=== PATIENT | female | born 1990 | race Hispanic/Latino ===

== ENCOUNTER 2017-12-19 11:13 | Emergency (ER) | payer OTHER, SELFPAY ==
[2017-12-19 11:44] LABS: #Basophils 0.1 thou/uL (0.0-0.2); #Lymphocytes 2.3 thou/uL (1.20-3.40); #Monocytes 0.3 thou/uL (0.11-0.59); #Neutrophils 3.8 thou/uL (1.40-6.50); %Basophils 0.9 % (0.0-1.0); %Eosinophils 0.5 % (0.0-10.0); %Lymphocytes 35.7 % (21.0-51.0); %Neutrophils 58.8 % (42.0-75.0); Hemoglobin 13.8 g/dL (12.0-16.0); Mean Corpuscular HGB CONC 33.8 g/dL (32.0-36.0); Mean Corpuscular Hemoglobin 30.8 pg (27.0-31.0); Platelet Count 296 thou/uL (130-400); RBC Distribution Width 11.1 % (11.5-14.5); Red Blood Cell (RBC) Count 4.49 mill/uL (4.20-5.40); White Blood Cell (WBC) Count 6.5 thou/uL (4.8-10.8)
[2017-12-19 11:53] LABS: Bilirubin Negative (Negative); Blood, Urine Negative (Negative); Clarity CLEAR (Clear); Glucose, Urine (Dipstick) Negative (Negative); Leukocyte Negative (Negative); Nitrite Negative (Negative); Protein, Urine (Dipstick) Negative (Neg-Trace); Specific Gravity, Urine 1.005 (1.002-1.036); Urobilinogen 0.2 mg/dL (0.2-1.0)
--- NOTE | 2017-12-19 13:16 | ULT ---
PELVIS ULTRASOUND: HISTORY: Positive beta hCG. Patient with pain. TECHNIQUE: Real-time imaging of the pelvis was obtained both transabdominally, as well as with an endovaginal pr obe. FINDINGS: This shows a uterus measuring 4.4 x 5.5 x 8.4 cm. The endometrium is thickened and heterogeneous in appearance. It also shows some increased vascularity. It does not appear to be blood products withi n the endometrium itself. The right ovary is never definitely visualized. On the endovaginal images, there is a left ovarian c ystic appearing structure, which I feel is most likely a corpus luteum type cyst. It does not have t he appearance of an ectopic . It measures 2.1 x 1.8 cm in size. Still slightly to the left of midline but separate from this is a second hypoechoic structure, which does not appear to represe nt a cyst. It measures approximately 2.2 cm in size. It does not have the appearance of an ectopic or tubal type , but it does not definitely have the appearance of an ovary. It also would b e an unusual position for the right ovary, as it is left of midline. On Doppler evaluation with spectral analysis, normal flow is shown to the left ovary. IMPRESSION: 1. Thickened, heterogeneous endometrium with increased vascularity. On some of these images, the ap pearance is similar to what would be seen with a molar type . 2. A 2 cm cystic structure in the left ovary. It appears to be related to a corpus luteum cyst. It does not have the typical appearance of an ectopic. 3. Second structure in the left adnexal region, measuring in the 2 cm range. It is not cystic in na ture. It does not have a typical appearance that would be seen with a tubal type . It has some features that would suggest it is possibly an ovary but it is to the left of midline and it woul d be an unusual position for the right ovary. I am not certain what this represents. One of the pos sibilities is a lymph node or possibly an endometrioma. The possibility of an ectopic is n ot excluded on the basis of this examination. Findings were discussed with Dr. Sunshine. CODE CR POS: [facility]
--- NOTE | 2017-12-19 21:46 | CON ---
DATE OF CONSULTATION: 12/19/2017 The patient had no care. REFERRING PHYSICIAN: Dr. Sunshine in the emergency room. CHIEF COMPLAINT: Concerns for an abnormal . HISTORY OF PRESENT ILLNESS: The patient is a 27-year-old G2 with a positive home test who presents to the emergency room with a 2-day history of lower pelvic pain and discomfort. The patient reports that the pain is not serious, but that she is concerned because of the presence of the disco mfort that she was concerned she could have an ectopic and came for evaluation. The patien t does report that she is in her words hypochondriac and admits that the pain is not severe, but ricky vital just wanted to make sure things were okay. In the process of her evaluation here, patient was note d to have positive quantitative HCG of about 800 and vaginal ultrasound without any evidence of intra uterine , but a thickened heterogeneous endometrium that does not have the typical features when of . The patient denies any recent illness, fever, or fall. She denies vaginal bleedi ng. She denies leakage of fluid. Denies chest pain or shortness of breath. Denies cough. Denies c onstipation or diarrhea. Denies dysuria. Denies musculoskeletal pains. Denies new rash. PAST MEDICAL HISTORY: History of first trimester miscarriage sounds by report as a missed AB resulti ng in medically-induced miscarriage, which she described as a D&C by term in the description of the p rocess was affected by Cytotec, abnormal Pap smear. PAST SURGICAL HISTORY: LEEP procedure. SOCIAL HISTORY: Denies drug, alcohol, and tobacco use. Patient does admit to using her 's Ad derall at times. Late night helpless studying. ALLERGIES: No known drug allergies. MEDICATIONS: None. PHYSICAL EXAMINATION: VITAL SIGNS: Blood pressure 114/67, pulse of 80, respiratory rate of 18, temperature 98.4, satting 9 9% on room air. GENERAL: She appears to be in no acute distress. She is alert and oriented, cooperative and pleasan t to interact with. HEAD: Normocephalic, atraumatic. LUNGS: Clear to auscultation bilaterally. HEART: Regular rate and rhythm. ABDOMEN: Soft, no peritoneal signs, no guarding. She does have some midline tenderness to palpation , mild in nature. Ultrasound again demonstrates a thickened endometrium, describes having some increased vascularity an d signs that could be suggestive of a molar . We did discuss in some detail the concerns that this is an abnormal of some kind. The poss ibility of it being a molar or ectopic . As the patient is without any serious sy mptoms at this time and admittedly just more concerned about what could be going on than actually the actual discomfort that she was in, we have recommended that the patient return in 48 hours for repea t quantitative HCG. The patient is prepared to return and is aware and understands that her definiti ve diagnosis may not be reached for a few days. Patient has been given instructions to return should she experience increasing pain. She has an appointment today to establish care with [facility]. ASSESSMENT AND PLAN: With regards to her history of LEEP in our discussion, the patient became clear that the patient has not had any followup since her LEEP procedure for this abnormal dysplasia of so me kind. We did discuss the need or the importance of regular followup for several years to ensure t hat all the abnormal tissue has been removed and that the cervix has returned to normal. Both the darrel serrano and her are both comfortable going home today with the above given conditions and recom mendations.
== END 2017-12-19 14:27 | disposition home or self-care (01) ==
LOC: ERS 11:13
DX: O20.0 Threatened abortion (principal); Z3A.01 Less than 8 weeks gestation of pregnancy
CPT/HCPCS: 36415; 76856; 81003; 84702; 85025; 86900; 86901

== ENCOUNTER 2017-12-30 14:07 | Emergency (ER) | payer SELFPAY ==
--- NOTE | 2017-12-30 18:12 | ULT ---
PELVIC ULTRASOUND WITH SCOTT SCALE AND DOPPLER COLORFLOW AND SPECTRAL ANALYSIS: INDICATIONS: Vaginal bleeding. TECHNIQUE: Transabdominal/endovaginal sonographic imaging of the pelvis performed. FINDINGS: There is thickening and heterogeneity of the endometrium, approximately 1.5 cm in thickness. Doppler evaluation reveals flow to each ovary. No suspicious ovarian lesions. There is a rounded focus of altered echotexture involving the posterior aspect of the uterine body, w hich may relate to a uterine fibroid, measuring 1.8 cm, as demonstrated. There is no significant nolberto e pelvic fluid. A physiologic appearing cyst is seen at the left ovary. IMPRESSION: Complex, thickened endometrium, nonspecific. Given the patient's age, this could relate to a physiol ogic process, although entities such as endometritis, stimulation from ectopic , or underlyi ng mass cannot be further discerned on the basis of this examination. Recommend clinical correlation . Beta hCG values should also be obtained to exclude the possibility of an ectopic . POS: [facility]
== END 2017-12-30 16:47 | disposition home or self-care (01) ==
LOC: ERS 14:07
DX: O20.0 Threatened abortion (principal); Z3A.01 Less than 8 weeks gestation of pregnancy
CPT/HCPCS: 36415; 76856; 84702; 86900; 86901

== ENCOUNTER 2018-01-02 21:36 | Emergency (ER) | payer SELFPAY ==
[2018-01-02 22:45] LABS: #Basophils 0.1 thou/uL (0.0-0.2); #Eosinphils 0.2 thou/uL (0.0-0.7); #Monocytes 0.5 thou/uL (0.11-0.59); #Neutrophils 5.2 thou/uL (1.40-6.50); %Eosinophils 1.6 % (0.0-10.0); %Lymphocytes 39.9 % (21.0-51.0); %Monocytes 4.7 % (0.0-10.0); %Neutrophils 52.8 % (42.0-75.0); Mean Corpuscular Hemoglobin 29.8 pg (27.0-31.0); Mean Corpuscular Volume 87.6 fL (78.0-98.0); Platelet Count 254 thou/uL (130-400); RBC Distribution Width 10.8 % (11.5-14.5); Red Blood Cell (RBC) Count 4.35 mill/uL (4.20-5.40); White Blood Cell (WBC) Count 9.9 thou/uL (4.8-10.8)
--- NOTE | 2018-01-03 11:29 | ULT ---
TRANSABDOMINAL AND TRANSVAGINAL PELVIC ULTRASOUD WITH SCOTT SCALE AND COLOR FLOW AND SPECTRAL DOPPLER IMAGING: Date: 01/02/18 HISTORY: Vaginal spotting, 7 weeks. FINDINGS: No intrauterine gestational sac is seen. The endometrium measures 5.0 mm in thickness. No endometrial fluid is seen. There is a 2.3 x 2.4 x 2.2 cm heterogeneous mass in the lateral aspect of the uterus, which is likely a fibroid. The ovaries have a normal appearance and demonstrate flow. No free fluid is seen in the cul-de-sac. IMPRESSION: 1. No evidence of intrauterine gestation. 2. Probable uterine fibroid. 3. Recommend correlation with serial serum beta HCG and follow-up ultrasound. POS: [facility]
== END 2018-01-03 00:35 | disposition home or self-care (01) ==
LOC: SCSER 21:36
DX: O02.1 Missed abortion (principal)
CPT/HCPCS: 76856; 84702; 85025

== ENCOUNTER 2019-04-24 08:41 | Outpatient (CLI) | payer MEDICAID ==
--- NOTE | 2019-04-24 09:35 | MMO ---
Bilateral MAMMO Bilat Diag [facility]DI+LEE. CLINICAL HISTORY: Patient is 29 years old and is seen for diagnostic exam. The patient has no family history of breast cancer. The patient has no personal history of cancer. VIEWS: The views performed were: bilateral craniocaudal with tomosynthesis; bilateral mediolateral oblique with tomosynthesis; and bilateral mediolateral with tomosynthesis. FILMS COMPARED: The present examination has been compared to a prior imaging study performed at [facility] on 04/24/2019. This study has been interpreted with the assistance of computer-aided detection. MAMMOGRAM FINDINGS: The breasts are heterogeneously dense, which could obscure a lesion on mammography. There are no suspicious masses, suspicious calcifications, or new areas of architectural distortion. There are no mammographic or sonographic abnormalities in the area of palpable concern. The patient is referred back to her clinician. Negative imaging findings should not preclude biopsy if clinical findings are suspicious. IMPRESSION: THERE ARE NO MAMMOGRAPHIC OR SONOGRAPHIC ABNORMALITIES IN THE AREA OF PALPABLE CONCERN. THE PATIENT IS REFERRED BACK TO HER CLINICIAN. NEGATIVE IMAGING FINDINGS SHOULD NOT PRECLUDE BIOPSY IF CLINICAL FINDINGS ARE SUSPICIOUS. THE RESULTS OF THIS EXAM WERE SENT TO THE PATIENT. ACR BI-RADS Category 1 - Negative MAMMOGRAPHY NOTE: 1. A negative mammogram report should not delay a biopsy if a dominant of clinically suspicious mass is present. 2. Approximately 10% to 15% of breast cancers are not detected by mammography. 3. Adenosis and dense breasts may obscure an underlying neoplasm. Reported by: JANET RIDDLE MD Electonically Signed: [id number]
--- NOTE | 2019-04-24 10:50 | ULT ---
LIMITED RIGHT BREAST ULTRASOUND: DATE: 04/24/2019. PROVIDED CLINICAL HISTORY: Right breast palpable abnormality. FINDINGS: Limited sonographic interrogation was performed of the right breast in the region of palpable concern . The sonographic appearance of the breast tissue in this region is normal. IMPRESSION: BIRADS category 1 - negative. Negative imaging findings should not preclude further evaluation of a clinically suspicious finding. The patient is referred back to her clinician. POS: OFF
== END 2019-04-24 08:42 | disposition home or self-care (01) ==
LOC: BICMAMMO 08:41
PROVIDERS: ATTEND Obstetrics & Gynecology
DX: N63.11 Unspecified lump in the right breast, upper outer quadrant (principal)
CPT/HCPCS: 77066; G0279

== ENCOUNTER 2019-11-30 02:05 | Emergency (ER) | payer MEDICAID ==
[2019-11-30] MEDS ORDERED: Ondansetron ODT 4 MG TAB ONE (02:19)
[2019-11-30] MEDS ORDERED: Ondansetron PF 4 MG/2 ML Vial ONE (02:38)
[2019-11-30 03:02] LABS: #Basophils 0.1 thou/uL (0.0-0.2); #Eosinphils 0.1 thou/uL (0.0-0.7); #Monocytes 0.3 thou/uL (0.11-0.59); %Basophils 0.6 % (0.0-1.0); %Eosinophils 0.5 % (0.0-10.0); %Lymphocytes 16.2 % (21.0-51.0); %Monocytes 2.5 % (0.0-10.0); %Neutrophils 80.2 % (42.0-75.0); Mean Corpuscular HGB CONC 35.1 g/dL (32.0-36.0); Mean Corpuscular Hemoglobin 32.6 pg (27.0-31.0); Mean Corpuscular Volume 93.1 fL (78.0-98.0); Mean Platelet Volume 8.2 fL (7.4-10.4); Platelet Count 276 thou/uL (130-400); White Blood Cell (WBC) Count 12.5 thou/uL (4.8-10.8)
[2019-11-30] MEDS ORDERED: Morphine 4 MG/ML VIAL ONE (03:09)
[2019-11-30 03:31] LABS: Bilirubin Negative (Negative); Blood, Urine Negative (Negative); Clarity Clear (Clear); Glucose, Urine (Dipstick) Normal (Negative); Ketone, Urine Negative (Negative); Leukocyte Negative Leu/uL (Negative); Nitrite Negative (Negative); Pregnancy Test - Urine (BHCG) Negative (Negative); Pregu Control Background? CLEAR/WHITE (CLR/WHITE); Pregu Control Bar Appear? YES (CONTROL BAR); Protein, Urine (Dipstick) Negative (Neg-Trace); Specific Gravity 1.018 (1.002-1.036); Specific Gravity, Urine 1.018 (1.002-1.036); Urobilinogen Normal mg/dL (Less than 2)
[2019-11-30 03:40] LABS: ALT (SGPT) 20 U/L (8-55); AST (SGOT) 20 U/L (5-34); Albumin 4.1 g/dL (3.5-5.0); Alkaline Phosphatase 61 U/L (40-110); Anion Gap 12 mmol/L (10-20); BUN (Urea Nitrogen) 11 mg/dL (7.0-18.7); Bilirubin, Total 0.2 mg/dL (0.2-1.2); Calc. Creatinine Clearance 0 mL/min (70-130); Calcium 9.2 mg/dL (7.8-10.44); Carbon Dioxide 25 mmol/L (22-29); Chloride 106 mmol/L (98-107); Estimated GFR-MDRD 81; Globulin 2.6 g/dL (2.4-3.5); Glucose 153 mg/dL (70-105); Lipase 19 U/L (8-78); Potassium 4.1 mmol/L (3.5-5.1); Protein, Total 6.7 g/dL (6.0-8.3); Sodium 139 mmol/L (136-145)
== END 2019-11-30 04:40 | disposition home or self-care (01) ==
LOC: ERS 02:05
DX: R10.13 Epigastric pain (principal); R11.2 Nausea with vomiting, unspecified
CPT/HCPCS: 80053; 81003; 81025; 83690; 85025; 96361; 96374; 96375; J2270; J2405; Q0162